=== PATIENT | female | born 1990 ===

== ENCOUNTER 2018-03-21 17:46 | Emergency (ER) | payer SELFPAY ==
[2018-03-21 17:58] VITALS: BP 123/75; PULSE 80; TEMP 98.5; BMI 25.1
[2018-03-21] MEDS ORDERED: KETOROLAC TROMETHAMINE 30 MG/1 ML VIAL IVPUSH ONE (19:26)
[2018-03-21] MEDS ORDERED: SODIUM CHLORIDE 1,000 ML IV STA (19:26)
--- NOTE | 2018-03-21 19:27 | PDOC ---
History of Present Illness - History of Present Illness Initial Comments: The patient is a 27 year old female, with no significant PMH, who presents to the emergency department today complaining of a headache, nasal congestion, sore throat, body aches, and a subjective fever for 1 day. Patient notes she began experiencing symptoms this morning upon waking up,which began with a headache and nasal congestion. Patient also notes having a sore throat, which causes difficulty swallowing and is tender to touch. She also notes diffuse body aches, which are most prominent on the low back. Patient reports a subjective fever, but denies having a cough. Patient denies ever having strep as an adult, and denies being in the presence of school-aged children. She notes having a sick contact at home. Patient states that she is not up to date on her flu vaccination. The patient denies chest pain, shortness of breath, and dizziness. Denies chills, nausea, vomit, diarrhea and constipation. Denies dysuria, frequency, urgency and hematuria. Allergies: NKA Past surgical history: None reported Social history: Denies EtOH, tobacco, or recreational drug use. PCP: None reported 03/21/18 19:36 <Kiesha Velazquez - Last Filed: 03/21/18 21:02> <Aleyda Terrazas - Last Filed: 03/22/18 04:11> - General Chief Complaint: Pain Stated Complaint: BODY ACHES AND HEADACHE SORE THROAT TODAY Time Seen by Provider: 03/21/18 19:14 Past History <Kiesha Velazquez - Last Filed: 03/21/18 21:02> - Past Medical History COPD: No Other medical history: DENIES - Suicide/Smoking/Psychosocial Hx Smoking History: Never smoked Have you smoked in the past 12 months: No Information on smoking cessation initiated: No Hx Alcohol Use: Yes (SOCIAL) Drug/Substance Use Hx: No <Aleyda Terrazas - Last Filed: 03/22/18 04:11> - Past Medical History Allergies/Adverse Reactions: Allergies Allergy/AdvReac Type Severity Reaction Status Date / Time No Known Allergies Allergy Unverified 03/21/18 17:57 Home Medications: Ambulatory Orders NK [No Known Home Medication] 03/21/18 Review of Systems - Review of Systems Comments:: GENERAL/CONSTITUTIONAL: +Subjective fever. +Body aches. No chills. No weakness. HEAD, EYES, EARS, NOSE AND THROAT: +Sore throat. +Nasal congestion. No change in vision. No ear pain or discharge. CARDIOVASCULAR: No chest pain or shortness of breath. RESPIRATORY: No cough, wheezing, or hemoptysis. GASTROINTESTINAL: No nausea, vomiting, diarrhea or constipation. GENITOURINARY: No dysuria, frequency, or change in urination. MUSCULOSKELETAL: +Low back aches. No joint or muscle swelling or pain. No neck pain. SKIN: No rash NEUROLOGIC: +Headache. No vertigo, loss of consciousness, or change in strength/ sensation. ENDOCRINE: No increased thirst. No abnormal weight change. HEMATOLOGIC/LYMPHATIC: No anemia, easy bleeding, or history of blood clots. ALLERGIC/IMMUNOLOGIC: No hives or skin allergy. 03/21/18 19:36 <Kiesha Velazquez - Last Filed: 03/21/18 21:02> *Physical Exam - Vital Signs Last Vital Signs Temp Pulse Resp BP Pulse Ox 98.5 F 80 16 123/75 99 03/21/18 17:48 03/21/18 17:48 03/21/18 17:48 03/21/18 17:48 03/21/18 17:48 - Physical Exam Comments: GENERAL: The patient is awake, alert, and fully oriented, in no acute distress. HEAD: Normal with no signs of trauma. EYES: Pupils equal, round and reactive to light, extraocular movements intact, sclera anicteric, conjunctiva clear with no pallor. ENT: +Dry mucous membranes. Ears normal, nares patent, oropharynx clear without exudates. THROAT: +Mild erythema of the throat. +Mild tenderness and mild edema bilaterally of the anterior cervical lymph nodes. NECK: Normal range of motion, supple without lymphadenopathy, JVD, or masses. LUNGS: Breath sounds equal, clear to auscultation bilaterally. No wheeze/ crackles. HEART: Regular rate and rhythm, normal S1 and S2 without murmur or rub. ABDOMEN: Soft/nontender/nondistended. BS wnl. No guarding or rebound. No palpable masses. No hepatosplenomegaly. EXTREMITIES: Normal range of motion, no edema. No clubbing or cyanosis. No cords, erythema, or tenderness. NEUROLOGICAL: Cranial nerves II through XII grossly intact. Normal speech, normal gait. PSYCH: Normal mood, normal affect. SKIN: Warm, Dry, normal turgor, no rashes or lesions noted. 03/21/18 19:39 <Kiesha Velazquez - Last Filed: 03/21/18 21:02> - Vital Signs Last Vital Signs Temp Pulse Resp BP Pulse Ox 98.5 F 80 16 123/75 99 03/21/18 17:48 03/21/18 17:48 03/21/18 17:48 03/21/18 17:48 03/21/18 17:48 <Aleyda Terrazas - Last Filed: 03/22/18 04:11> Moderate Sedation - Procedure Monitoring Vital Signs: Procedure Monitoring Vital Signs Temperature 98.5 F 03/21/18 17:48 Pulse Rate 80 03/21/18 17:48 Respiratory Rate 16 03/21/18 17:48 Blood Pressure 123/75 03/21/18 17:48 O2 Sat by Pulse Oximetry (%) 99 03/21/18 17:48 <Kiesha Velazquez - Last Filed: 03/21/18 21:02> - Procedure Monitoring Vital Signs: Procedure Monitoring Vital Signs Temperature 98.5 F 03/21/18 17:48 Pulse Rate 80 03/21/18 17:48 Respiratory Rate 16 03/21/18 17:48 Blood Pressure 123/75 03/21/18 17:48 O2 Sat by Pulse Oximetry (%) 99 03/21/18 17:48 <Aleyda Terrazas - Last Filed: 03/22/18 04:11> Medical Decision Making - Medical Decision Making Documentation has been prepared under my direction and personally reviewed by me in its entirety. I attest that this documented accurately reflects all work, treatment, procedures and medical decision making performed by me. As noted above, this otherwise healthy 27-year-old woman presents with 1 day history of headache/bodyaches/malaise accompanied by mild sore throat. She states that her roommate has similar symptoms. Patient did not have influenza immunization this year. Exam as noted Although the patient has no nausea or vomiting. She appears to be clinically dehydrated and patient was given a liter of normal saline with 30 mg Toradol IV. Rapid testing of the influenza was performed via nasal swab Patient felt somewhat improved after IV hydration and 30 mg of Toradol. She was discharged with instructions to rest (no work tomorrow), fluid hydration as much as possible and [id number] analgesics as needed. 03/22/18 04:08 Patient tested positive for influenza A (results obtained after she was discharged.) Tamiflu 75 mg twice a day for 5 days called in to her pharmacy and voicemail left on her phone <Aleyda Terrazas - Last Filed: 03/22/18 04:11> *DC/Admit/Observation/Transfer - Attestations Scribe Attestion: Documentation prepared by ANGELA Santos, acting as medical office coordinator for Aleyda Terrazas MD. 03/21/18 19:40 <Kiesha Velazquez - Last Filed: 03/21/18 21:02> <Aleyda Terrazas - Last Filed: 03/22/18 04:11> Diagnosis at time of Disposition: Viral syndrome - Discharge Dispostion Disposition: HOME Condition at time of disposition: Stable - Patient Instructions Printed Discharge Instructions: DI for Viral Syndrome Additional Instructions: Rest; drink plenty of water no work tomorrow Ibuprofen/naproxen/acetaminophen as needed for throat pain/bodyaches/fever We will contact you if influenza test is positive If influenza is positive you will take Tamiflu 75 mg twice a day for 5 days Return to ER if you have persistent high fever/increased pain/vomiting Follow-up with your doctor within the next 5-7 days - Post Discharge Activity Forms/Work/School Notes: Back to Work
[2018-03-21] MEDS ORDERED: KETOROLAC TROMETHAMINE 30 MG/1 ML VIAL ONE (19:40)
== END 2018-03-21 21:08 | disposition home or self-care (01) ==
LOC: FER 17:46
PROC: 3E0333Z Introduction of Anti-inflammatory into Peripheral Vein, Percutaneous Approach (ICD-10-PCS; principal; 2018-03-21)
PROC: 3E0337Z Introduction of Electrolytic and Water Balance Substance into Peripheral Vein, Percutaneous Approach (ICD-10-PCS; 2018-03-21)
DX: B34.9 Viral infection, unspecified (principal)
CPT/HCPCS: 87804; 99282-25; J7030